=== PATIENT | female | born 1960 | race Caucasian/White ===

== ENCOUNTER 2019-02-09 23:36 | Emergency (ER) | payer MEDICAID ==
[~2019-02-09] VITALS: Ht 152.4 cm; Wt 61.2 kg
--- NOTE | 2019-02-09 23:36 | NUR ---
TO BED 3 AMBULATORY C/O NONRADIATING MIDSTERNAL CP X20 MIN TRACK RIDER WITH HEADACHE, DIZZINESS AND NAUSEA. DESCRIBED PRESSURE. PT AAOX4 NO ACUTE DISTRESS NOTED, RESP EVEN AND UNLABORED. SKIN WARM, NONDIAPHORETIC. PLACE PT ON CARDIAC MONITORING, CONTINUOUS POX. ER MD AT BEDSIDE TO EVAL PT WITH ORDERS RECEIVED. WILL CARRY OUT ORDERS.
--- NOTE | 2019-02-09 23:55 | NUR ---
PT DAUGHTER AT BEDSIDE.
[2019-02-10] LABS: BASOPHILS # (AUTO) 0.1 /CMM (0.0-0.2); BASOPHILS % (AUTO) 1.8 % (0.0-2.0); EOSINOPHILS % (AUTO) 3.4 % (0.0-6.0); HEMATOCRIT 42 % (33-45); LYMPHOCYTES # (AUTO) 2.7 /CMM (0.8-4.8); MEAN CORPUSCULAR HGB CONC 33 g/dl (31.0-36.0); MEAN CORPUSCULAR VOLUME 92 fL (82-100); MONOCYTES # (AUTO) 0.5 /CMM (0.1-1.30); MONOCYTES % (AUTO) 9.1 % (2.0-12.0); NEUTROPHILS # (AUTO) 2.4 /CMM (1.8-8.9); NEUTROPHILS % (AUTO) 40.7 % (43.0-81.0); PLATELET COUNT (AUTO) 269 /CMM (150-450); RED BLOOD CELL COUNT(AUTO) 4.55 MIL/uL (4.0-5.2); WHITE BLOOD COUNT (AUTO) 5.9 K/uL (4.3-11.0)
[2019-02-10 00:09] LABS: CALCIUM, SERUM 8.7 mg/dL (8.5-10.1); CARBON DIOXIDE 31 mmol/L (21-32); CHLORIDE 107 mmol/L (98-107); CREATININE 0.7 mg/dL (0.6-1.3); GLUCOSE 95 mg/dL (74-106); POTASSIUM 3.5 mmol/L (3.5-5.1); SODIUM SERUM 142 mmol/L (136-145); UREA NITROGEN, BLOOD 11 mg/dL (7-18)
[2019-02-10] MEDS ORDERED: LORAZEPAM INJ 2 MG/ML VIAL ONE (00:43)
[2019-02-10] MEDS ORDERED: LORAZEPAM INJ 2 MG/ML VIAL IV ONE (01:00)
--- NOTE | 2019-02-10 01:12 | NUR ---
PT RESTING QUIETLY, NO ACUTE DISTRESS NOTED, RESP EVEN AND UNLABORED. CALL LIGHT WITHIN REACH. PT DAUGHTER REMAINS AT BEDSIDE. WILL CONTINUE TO MONITOR PT CLOSELY.
[2019-02-10 02:43] VITALS: BP 122/78
--- NOTE | 2019-02-10 02:56 | NUR ---
Patient discharged to home in stable condition. Written and verbal after care instructions given. Patient verbalizes understanding of instruction. ambulatory with a steady gait noted. pt aaox4 no acute distress noted, resp even and unlabored. advice pt not to drive or operate any machinery due to pt was given narcotic medicine. pt verbalize understanding. pt daught at bedside to take pt home.
== END 2019-02-10 02:57 | disposition home or self-care (01) ==
LOC: ER 23:38
DX: R07.89 Other chest pain (principal); F41.9 Anxiety disorder, unspecified; Z98.890 Other specified postprocedural states
CPT/HCPCS: 36415; 71045; 80048; 84484; 85025; 93005 ×2; 96374; 99284; J2060

== ENCOUNTER 2021-03-03 16:25 | Emergency (ER) | payer MEDICAID ==
[~2021-03-03] VITALS: Ht 152.4 cm; Wt 59.0 kg
[2021-03-03] MEDS ORDERED: ONDANSETRON HCL/PF 4 MG/2 ML VIAL ONE (16:50)
[2021-03-03] MEDS ORDERED: MORPHINE SULFATE INJ 4 MG/ML DISP.SYRIN ONE (16:50)
[2021-03-03] MEDS ORDERED: ONDANSETRON HCL/PF 4 MG/2 ML VIAL IVP ONE (17:00)
[2021-03-03] MEDS ORDERED: IV NS 0.9% 1,000 ML BAG IV ONE (17:00)
[2021-03-03] MEDS ORDERED: MORPHINE SULFATE INJ 2 MG/ML DISP.SYRIN IV ONE (17:00)
--- NOTE | 2021-03-03 17:00 | NUR ---
Patient came in to the er c/o "Abdominal Pain started around 1pm. Worse now - Feel Bloated". On room air, breathing evenly and unlabored. Connected to the monitor and pulse ox. Kept comfortable, will continue to monitor accordingly.
[2021-03-03 17:03] LABS: HEMATOCRIT 38 % (33-45); HEMOGLOBIN 12.6 g/dL (11.5-14.8); MEAN CORPUSCULAR HGB CONC 33 g/dl (31.0-36.0); WHITE BLOOD COUNT (AUTO) 6.5 K/uL (4.3-11.0)
[2021-03-03 17:04] LABS: BILIRUBIN,URINE Negative (NEGATIVE); COLOR,URINE YELLOW (YELLOW); LEUKOCYTE ESTERASE ,URINE Negative (NEGATIVE); NITRITE, URINE Negative (NEGATIVE); PH,URINE 7.5 (5.0-8.0); PROTEIN,URINE Trace mg/dl (NEGATIVE); UGLUCOSE Negative (NEGATIVE); UROBILINOGEN,URINE 0.2 EU/dL (0.2)
[2021-03-03 17:06] LABS: BASOPHILS # (AUTO) 0.1 K/uL (0.0-0.2); BASOPHILS % (AUTO) 1.3 % (0.0-2.0); EOSINOPHILS % (AUTO) 1.2 % (0.0-6.0); LYMPHOCYTES # (AUTO) 2.6 K/uL (0.8-4.8); LYMPHOCYTES % (AUTO) 39.6 % (20.0-44.0); MEAN CORPUSCULAR VOLUME 92 fL (82-100); MONOCYTES # (AUTO) 0.5 K/uL (0.1-1.30); MONOCYTES % (AUTO) 8.2 % (2.0-12.0); NEUTROPHILS # (AUTO) 3.2 K/uL (1.8-8.9); NEUTROPHILS % (AUTO) 49.7 % (43.0-81.0); PLATELET COUNT (AUTO) 224 K/uL (150-450); RED BLOOD CELL COUNT(AUTO) 4.13 MIL/uL (4.0-5.2)
--- NOTE | 2021-03-03 17:09 | NUR ---
IV started and blood drawned and sent to lab.
[2021-03-03 17:10] LABS: CALCIUM, SERUM 8.3 mg/dL (8.5-10.1); POTASSIUM 3.1 mmol/L (3.5-5.1)
[2021-03-03 17:13] LABS: BACTERIA,URINE Rare /HPF (None Seen); MUCUS,URINE Few /LPF (None Seen); RBC,URINE 0-2 /HPF (0-2); SQUAMOUS EPITHELIAL CELL,UR 0-2 /HPF (None Seen); WBC,URINE 0-2 /HPF (0-3)
[2021-03-03 17:15] LABS: ALBUMIN 3.1 g/dL (3.4-5.0); BILIRUBIN,DIRECT 0.2 mg/dL (0.0-0.2); BILIRUBIN,TOTAL 0.6 mg/dL (0.2-1.0); TOTAL PROTEIN, SERUM 6.7 g/dL (6.4-8.2)
[2021-03-03] MEDS ORDERED: IOHEXOL-300 100 ML VIAL IV ONE (17:26)
[2021-03-03] MEDS ORDERED: IV NS 0.9% 250 ML IV ONE (17:27)
[2021-03-03] MEDS ORDERED: FAMOTIDINE/PF INJ 20 MG/2 ML VIAL IV ONE ×2 (18:30→18:40)
[2021-03-03] MEDS ORDERED: MAG HYDROX/AL HYDROX/SIMETH 30 ML UDC PO ONE (18:30)
[2021-03-03] MEDS ORDERED: CIPR500T5 PO (18:30)
[2021-03-03] MEDS ORDERED: METR-147 PO (18:30)
[2021-03-03] MEDS ORDERED: LIDOCAINE VISCOUS 2% UD 15 ML UDC MM ONE (18:30)
[2021-03-03] MEDS ORDERED: LIDOCAINE VISCOUS 2% UD 15 ML UDC ONE (18:39)
[2021-03-03] MEDS ORDERED: MAG HYDROX/AL HYDROX/SIMETH 30 ML UDC ONE (18:39)
[2021-03-03 18:48] VITALS: BP 122/81
--- NOTE | 2021-03-03 18:48 | NUR ---
Patient discharged to home in stable condition. Written and verbal after care instructions given. Patient verbalizes understanding of instruction.IV removed. Catheter intact and site benign. Pressure and 4x4 applied to site. No bleeding noted.
== END 2021-03-03 18:48 | disposition home or self-care (01) ==
LOC: ER 16:36
DX: K52.9 Noninfective gastroenteritis and colitis, unspecified (principal); K29.70 Gastritis, unspecified, without bleeding; R10.12 Left upper quadrant pain; Z98.890 Other specified postprocedural states; Z79.899 Other long term (current) drug therapy; Z90.49 Acquired absence of other specified parts of digestive tract
CPT/HCPCS: 36415; 74177; 80048; 80076; 81001; 83605; 83690; 85025; 96361; 96374; 96375; 99291; J2270; J2405; J3490; J7030; J7050; Q9967

== ENCOUNTER 2022-10-13 16:06 | Emergency (ER) | payer MEDICAID ==
[~2022-10-13] VITALS: Ht 154.9 cm; Wt 67.1 kg
[~2022-10-13 16:06] MED LIST: CIPR500T5 PO; METR-147 PO
[2022-10-13] MEDS ORDERED: ONDANSETRON HCL/PF 4 MG/2 ML VIAL ONE (16:48)
[2022-10-13] MEDS ORDERED: MORPHINE SULFATE INJ 4 MG/ML DISP.SYRIN ONE (16:48)
--- NOTE | 2022-10-13 16:50 | NUR ---
PT IN BED 6 A/O X4 TOLORATING ROOM AIR O2SAT 96%. GRIMACING AND HEAVING FROM PAIN IN RIGHT FLANK. 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 URINE IS BLOODY ON ASSESSMENT. PAIN MED WERE ORDERED AND GIVEN. SIDE RAILS UP BED LOCKED IN LOWEST POSTION.
[2022-10-13] MEDS ORDERED: ONDANSETRON HCL/PF - ER 4 MG/2 ML VIAL IV ONE (17:00)
[2022-10-13] MEDS ORDERED: IV NS 0.9% 1,000 ML BAG IV ONE (17:00)
[2022-10-13] MEDS ORDERED: MORPHINE SULFATE INJ 2 MG/ML DISP.SYRIN IV ONE (17:00)
[2022-10-13 17:07] LABS: EOSINOPHILS % (AUTO) 23.3 % (0.0-6.0); HEMATOCRIT 45 % (33-45); HEMOGLOBIN 14.7 g/dL (11.5-14.8); LYMPHOCYTES # (AUTO) 0.5 K/uL (0.8-4.8); LYMPHOCYTES % (AUTO) 6.7 % (20.0-44.0); MEAN CORPUSCULAR HGB CONC 33 g/dl (31.0-36.0); MEAN CORPUSCULAR VOLUME 91 fL (82-100); MONOCYTES # (AUTO) 0.3 K/uL (0.1-1.30); MONOCYTES % (AUTO) 3.3 % (2.0-12.0); NEUTROPHILS # (AUTO) 5.2 K/uL (1.8-8.9); NEUTROPHILS % (AUTO) 66.7 % (43.0-81.0); PLATELET COUNT (AUTO) 283 K/uL (150-450); RED BLOOD CELL COUNT(AUTO) 4.91 MIL/uL (4.0-5.2); WHITE BLOOD COUNT (AUTO) 7.8 K/uL (4.3-11.0)
--- NOTE | 2022-10-13 17:07 | NUR ---
urine collected and sent to lab
--- NOTE | 2022-10-13 17:19 | NUR ---
PT GOING TO CT.
--- NOTE | 2022-10-13 17:22 | NUR ---
RAC 18G STARTED BLOOD DRAWN AND SENT TO LAB.
[2022-10-13 17:39] LABS: BILIRUBIN,URINE 2+ (NEGATIVE); LEUKOCYTE ESTERASE ,URINE 1+ (NEGATIVE); NITRITE, URINE POSITIVE (NEGATIVE); PH,URINE 6.5 (5.0-8.0); PROTEIN,URINE 3+ mg/dl (NEGATIVE); UGLUCOSE TRACE mg/dL (NEGATIVE)
[2022-10-13 17:40] LABS: CALCIUM, SERUM 9.1 mg/dL (8.5-10.1); CREATININE 0.9 mg/dL (0.6-1.3)
[2022-10-13 17:45] LABS: COLOR,URINE BROWN (YELLOW)
[2022-10-13 18:00] LABS: BACTERIA,URINE 2+ /HPF (None Seen); RBC,URINE TOO NUMEROUS TO COUN /HPF (0-2); SQUAMOUS EPITHELIAL CELL,UR 0-2 /HPF (None Seen)
[2022-10-13 18:04] LABS: BAND % (MANUAL) 1 % (0.0-5.0); EOSINOPHILS % (MANUAL) 3 % (0-4); LYMPHOCYTES % (MANUAL) 15 % (16-48); MONOCYTES % (MANUAL) 5 % (0-11.0); NEUTROPHILS % (MANUAL) 76 (42-76)
[2022-10-13 18:08] LABS: ALBUMIN 4.1 g/dL (3.4-5.0); BILIRUBIN,DIRECT 0.2 mg/dL (0.0-0.2); BILIRUBIN,TOTAL 0.8 mg/dL (0.2-1.0); TOTAL PROTEIN, SERUM 8.5 g/dL (6.4-8.2)
[2022-10-13] MEDS ORDERED: CEFTRIAXONE 1GM BAG (ER ONLY) 1 GM/50 ML PIGGYBACK IV ONE (18:30)
[2022-10-13] MEDS ORDERED: AMOX500C2 PO (18:31)
[2022-10-13] MEDS ORDERED: CEFTRIAXONE 1GM BAG (ER ONLY) 50 ML IV ONE (18:31)
[2022-10-13] MEDS ORDERED: LISI10TA29 PO (18:31)
[2022-10-13] MEDS ORDERED: IBUP-1955 PO (19:41)
[2022-10-13] MEDS ORDERED: CEPH500C2 PO (19:41)
[2022-10-13] MEDS ORDERED: HYDR-3980 PO (19:41)
[2022-10-13] MEDS ORDERED: FAMO-131 PO (19:41)
[2022-10-13 20:29] VITALS: BP 137/75
== END 2022-10-13 20:25 | disposition home or self-care (01) ==
LOC: ER 16:17
DX: N20.0 Calculus of kidney (principal); N39.0 Urinary tract infection, site not specified; R10.31 Right lower quadrant pain; Z98.890 Other specified postprocedural states; Z79.899 Other long term (current) drug therapy; Z20.822 Contact with and (suspected) exposure to COVID-19
CPT/HCPCS: 99285; 74176; 96365; 76705; 96375; 96361; 87426; 85025; 80048; 83690; 80076; 81001; 36415; 85007; J2270; J2405 ×2; J7030; J0696; C9803

== ENCOUNTER 2023-05-03 17:28 | Emergency (ER) | payer MEDICAID ==
[~2023-05-03] VITALS: Ht 152.4 cm; Wt 59.0 kg
[~2023-05-03 17:28] MED LIST changes: +AMOX500C2 PO; +CEPH500C2 PO; -CIPR500T5 PO; +FAMO-131 PO; +HYDR-3980 PO; +IBUP-1955 PO; +LISI10TA29 PO; -METR-147 PO
[2023-05-03 18:43] LABS: BASOPHILS # (AUTO) 0.1 K/uL (0.0-0.2); EOSINOPHILS # (AUTO) 0.1 K/uL (0.0-0.7); HEMATOCRIT 39 % (33-45); HEMOGLOBIN 12.9 g/dL (11.5-14.8); LYMPHOCYTES # (AUTO) 1.9 K/uL (0.8-4.8); LYMPHOCYTES % (AUTO) 31.7 % (20.0-44.0); MEAN CORPUSCULAR HEMOGLOBIN 30 PG (26.0-33.0); MEAN CORPUSCULAR HGB CONC 33 g/dl (31.0-36.0); MEAN CORPUSCULAR VOLUME 91 fL (82-100); MONOCYTES # (AUTO) 0.5 K/uL (0.1-1.30); MONOCYTES % (AUTO) 8.3 % (2.0-12.0); NEUTROPHILS # (AUTO) 3.4 K/uL (1.8-8.9); PLATELET COUNT (AUTO) 255 K/uL (150-450)
[2023-05-03 18:51] LABS: CALCIUM, SERUM 8.9 mg/dL (8.5-10.1); CREATININE 0.8 mg/dL (0.6-1.3); POTASSIUM 3.3 mmol/L (3.5-5.1)
[2023-05-03 18:56] LABS: ALBUMIN 3.2 g/dL (3.4-5.0); BILIRUBIN,DIRECT 0.2 mg/dL (0.0-0.2); BILIRUBIN,TOTAL 0.6 mg/dL (0.2-1.0); TOTAL PROTEIN, SERUM 7.4 g/dL (6.4-8.2)
[2023-05-03 19:03] LABS: APPEARANCE,URINE SLIGHTLY CLOUDY (CLEAR); BILIRUBIN,URINE NEGATIVE (NEGATIVE); BLOOD, URINE TRACE-INTA Ery/uL (NEGATIVE); COLOR,URINE YELLOW (YELLOW); KETONES,URINE TRACE mg/dL (NEGATIVE); LEUKOCYTE ESTERASE ,URINE TRACE (NEGATIVE); NITRITE, URINE NEGATIVE (NEGATIVE); PROTEIN,URINE NEGATIVE (NEGATIVE); UGLUCOSE NEGATIVE (NEGATIVE)
[2023-05-03 19:09] LABS: ADD URINE CULTURE NO; BACTERIA,URINE 1+ /HPF (None Seen); CALCIUM OXALATE CRYSTALS,UR Few /HPF (None Seen)
[2023-05-03] MEDS ORDERED: AMOX-430 PO (19:48)
[2023-05-03 19:58] VITALS: BP 135/85; TEMP 99; O2SAT 98
== END 2023-05-03 19:56 | disposition home or self-care (01) ==
LOC: ER 17:28
DX: K57.32 Diverticulitis of large intestine without perforation or abscess without bleeding (principal); I10 Essential (primary) hypertension; E11.9 Type 2 diabetes mellitus without complications
CPT/HCPCS: 36415; 80048-TC; 80076-TC; 81001; 83690-TC; 85025-TC

== ENCOUNTER → 2023-07-21 | Emergency (ER) | payer MEDICAID, OTHER ==
[~2023-07-21] VITALS: Ht 162.6 cm; Wt 60.3 kg
[~2023-07-21] MED LIST changes: +AMOX-430 PO
[2023-07-21 14:12] VITALS: BP 134/82; TEMP 98.7; O2SAT 100
[2023-07-21 15:56] LABS: BASOPHILS # (AUTO) 0.1 K/uL (0.0-0.2); BASOPHILS % (AUTO) 1.1 % (0.0-2.0); EOSINOPHILS # (AUTO) 0.1 K/uL (0.0-0.7); EOSINOPHILS % (AUTO) 2.3 % (0.0-6.0); HEMATOCRIT 42 % (33-45); HEMOGLOBIN 13.9 g/dL (11.5-14.8); LYMPHOCYTES # (AUTO) 1.8 K/uL (0.8-4.8); LYMPHOCYTES % (AUTO) 36.1 % (20.0-44.0); MEAN CORPUSCULAR HEMOGLOBIN 30 PG (26.0-33.0); MEAN CORPUSCULAR HGB CONC 33 g/dl (31.0-36.0); MEAN CORPUSCULAR VOLUME 90 fL (82-100); MONOCYTES # (AUTO) 0.4 K/uL (0.1-1.30); MONOCYTES % (AUTO) 8.3 % (2.0-12.0); NEUTROPHILS # (AUTO) 2.6 K/uL (1.8-8.9); NEUTROPHILS % (AUTO) 52.2 % (43.0-81.0); PLATELET COUNT (AUTO) 237 K/uL (150-450); RED BLOOD CELL COUNT(AUTO) 4.64 MIL/uL (4.0-5.2); RED CELL DISTRIBUTION WIDTH 13.6 % (11.5-15.0); WHITE BLOOD COUNT (AUTO) 4.9 K/uL (4.3-11.0)
[2023-07-21 16:14] LABS: CALCIUM, SERUM 8.9 mg/dL (8.5-10.1); CREATININE 0.7 mg/dL (0.6-1.3); POTASSIUM 3.9 mmol/L (3.5-5.1)
[2023-07-21 16:40] LABS: ERYTHROCYTE SEDIMENTATION RATE 12 MM/HR (0-30)
== END | disposition home or self-care (01) ==
LOC: ER 13:28
DX: M25.472 Effusion, left ankle (principal)
CPT/HCPCS: 36415; 73590-TC; 73610-TC; 80048-TC; 85025-TC; 85652-TC; 93971-TC

== ENCOUNTER 2023-11-14 20:56 | Emergency (ER) | payer OTHER ==
[~2023-11-14] VITALS: Ht 152.4 cm; Wt 59.0 kg
[2023-11-14 21:37] VITALS: TEMP 99.2
[2023-11-14 22:14] LABS: BASOPHILS % (AUTO) 0.8 % (0.0-2.0); EOSINOPHILS # (AUTO) 0.1 K/uL (0.0-0.7); HEMATOCRIT 41 % (33-45); HEMOGLOBIN 13.7 g/dL (11.5-14.8); LYMPHOCYTES % (AUTO) 41.9 % (20.0-44.0); MEAN CORPUSCULAR HEMOGLOBIN 30 PG (26.0-33.0); MEAN CORPUSCULAR HGB CONC 34 g/dl (31.0-36.0); MEAN CORPUSCULAR VOLUME 91 fL (82-100); MONOCYTES # (AUTO) 0.6 K/uL (0.1-1.30); MONOCYTES % (AUTO) 11.5 % (2.0-12.0); NEUTROPHILS # (AUTO) 2.1 K/uL (1.8-8.9); NEUTROPHILS % (AUTO) 43.8 % (43.0-81.0); PLATELET COUNT (AUTO) 246 K/uL (150-450); RED BLOOD CELL COUNT(AUTO) 4.49 MIL/uL (4.0-5.2); RED CELL DISTRIBUTION WIDTH 14.1 % (11.5-15.0); WHITE BLOOD COUNT (AUTO) 4.8 K/uL (4.3-11.0)
[2023-11-14] MEDS ORDERED: ONDANSETRON HCL/PF 4 MG/2 ML VIAL ONE (22:34)
[2023-11-14] MEDS: ONDANSETRON HCL/PF 4 MG/2 ML VIAL IVP ONE (22:34)
[2023-11-14] MEDS: MECLIZINE HCL 12.5 MG TABLET PO ONE (22:34)
[2023-11-14] MEDS ORDERED: MECLIZINE HCL 25 MG TABLET ONE (22:34)
[2023-11-14 22:38] LABS: CALCIUM, SERUM 8.3 mg/dL (8.5-10.1); CARBON DIOXIDE 31 mmol/L (21-32); CHLORIDE 109 mmol/L (98-107); CREATININE 0.7 mg/dL (0.6-1.3); GLUCOSE 112 mg/dL (74-106); POTASSIUM 3.3 mmol/L (3.5-5.1); SODIUM SERUM 145 mmol/L (136-145); UREA NITROGEN, BLOOD 10 mg/dL (7-18)
[2023-11-14 22:48] LABS: NT-PRO BNP 29 pg/mL (0-125)
[2023-11-14 23:09] LABS: ALBUMIN 3.1 g/dL (3.4-5.0); BILIRUBIN,DIRECT 0.2 mg/dL (0.0-0.2); BILIRUBIN,TOTAL 0.5 mg/dL (0.2-1.0); TOTAL PROTEIN, SERUM 7.5 g/dL (6.4-8.2)
[2023-11-14 23:18] LABS: INR 1.01 (0.91-1.10); PARTIAL THROMBOPLASTIN TIME 26.2 SEC (24.3-34.3); PROTHROMBIN TIME 10.7 SECS (9.2-11.1)
[2023-11-14 23:51] LABS: APPEARANCE,URINE CLEAR (CLEAR); BILIRUBIN,URINE NEGATIVE (NEGATIVE); BLOOD, URINE NEGATIVE Ery/uL (NEGATIVE); COLOR,URINE YELLOW (YELLOW); KETONES,URINE NEGATIVE (NEGATIVE); LEUKOCYTE ESTERASE ,URINE NEGATIVE (NEGATIVE); NITRITE, URINE NEGATIVE (NEGATIVE); PROTEIN,URINE NEGATIVE (NEGATIVE); UGLUCOSE NEGATIVE (NEGATIVE); UROBILINOGEN,URINE 0.2 EU/dL (0.2)
[2023-11-15] MEDS ORDERED: MECL-182 PO (00:39)
[2023-11-15] MEDS ORDERED: ONDA4TAB5 PO (00:39)
[2023-11-15 00:49] VITALS: BP 168/66; O2SAT 98
== END 2023-11-15 00:50 | disposition home or self-care (01) ==
LOC: ER 21:06
DX: H61.23 Impacted cerumen, bilateral (principal); R42 Dizziness and giddiness; R07.89 Other chest pain; I10 Essential (primary) hypertension
CPT/HCPCS: 99285; 96374; 70450; 71045; 93005 ×2; 69209; 85025; 80048; 80076; 81003; 36415; 84484 ×2; 85730; 83880; 82962; J8597; J2405